=== PATIENT | female | born 1960 | race Caucasian/White ===

== ENCOUNTER 2018-09-29 06:55 | Day surgery (SDC) | payer OTHER ==
[2018-09-28 10:21] VITALS: BMI 27.7
[2018-09-29 09:18] VITALS: TEMP 97.8
[2018-09-29 10:14] VITALS: BP 119/56; PULSE 52
== END 2018-09-29 10:10 | disposition home or self-care (01) ==
LOC: JASU-ENDO 06:55
PROVIDERS: ATTEND Internal Medicine Gastroenterology
PROC: 0DJD8ZZ Inspection of Lower Intestinal Tract, Via Natural or Artificial Opening Endoscopic (ICD-10-PCS; principal; 2018-09-29 08:00)
DX: Z12.11 Encounter for screening for malignant neoplasm of colon (principal); K64.8 Other hemorrhoids; K57.30 Diverticulosis of large intestine without perforation or abscess without bleeding; K63.89 Other specified diseases of intestine